=== PATIENT | female | born 1995 | race American Indian/Alaskan Native ===

== ENCOUNTER 2018-03-16 12:54 | Emergency (ER) | payer MEDICAID ==
[2018-03-16 14:18] LABS: Bilirubin,Urine NEG (Negative); Blood,Urine NEG (Negative); Color,Urine Yellow (Yellow); Mucus,Urine 3+ /HPF; Protein,Urine <15 mg/dL mg/dL (Negative); Urobilinogen,Urine < 2.0 mg/dL (<2.0)
[2018-03-16 14:24] LABS: Bacteria,Urine 4+ /HPF (Negative)
[2018-03-16 14:26] LABS: HCG Qualitative,Urine Positive (Negative)
--- NOTE | 2018-03-16 14:32 | Emergency Department Report ---
ED Female HPI - General Chief complaint: Urogenital-Female Stated complaint: TEST Time Seen by Provider: 03/16/18 13:50 Source: patient Mode of arrival: Ambulatory Limitations: No Limitations - History of Present Illness Initial comments: This is a 22-year-old female here reports that she wants to find out if she is and she is having a toothache. Toothache has been for over a month to her left lower back tooth. She states that she doesn't have a dentist. And she doesn't want a dentist but doesn't take each care. she reports that she thinks she is but she has not gone to [facility]. Patient that she did not take a home test because she doesn't use that she wants to find out from here if she is or not. She denies any abdominal, back pain, vaginal bleeding or discharge. Denies any urinary burning, frequency or urgency. Denies any swelling to her legs, chest pain or shortness of breath. Toothache is 8 out of 10 worse with talking and showing. No alleviating factors. She denies taking any medication for toothache. She says she missed her period this month. Triage note reflects the patient was having pelvic pain and lower back pain but patient denies this. She says she is here for test and to get medication for tooth pain and it's been going on for 1 month. Denies any fever or chills, sore throat, cough, Jerlene, nasal congestion or runny nose. MD Complaint: dysuria, other (here to check to see if she is and reports toothache) Onset/Timin -: month(s) Radiation: non-radiating Severity: severe Severity scale (0 -10): 8 Quality: aching (TOOTH) Improves with: none Worsens with: none Are you Now?: Yes Associated Symptoms: dysuria. denies: vaginal discharge, vaginal bleeding, abdominal pain, nausea/vomiting, fever/chills, headaches, loss of appetite, hematuria, rash, seizure, shortness of breath, syncope, weakness - Related Data Sexually active: Yes Previous Rx's Medication Instructions Recorded Last Taken Type Acetaminophen [Non-Aspirin Extra 500 mg PO Q8H PRN #15 tablet 03/16/18 Unknown Rx Strength] Cephalexin [Keflex] 500 mg PO Q8H 7 Days #21 capsule 03/16/18 Unknown Rx Vit Calc,Iron,Folic 1 each PO QAM 30 Days #30 tablet 03/16/18 Unknown Rx [ Vitamins] Allergies Allergy/AdvReac Type Severity Reaction Status Date / Time No Known Allergies Allergy Unverified 03/16/18 13:05 ED Review of Systems ROS: Stated complaint: TEST Other details as noted in HPI Constitutional: denies: chills, fever Eyes: denies: eye pain, eye discharge, vision change ENT: dental pain. denies: ear pain, throat pain Respiratory: denies: cough, shortness of breath, SOB with exertion, SOB at rest , stridor, wheezing Cardiovascular: denies: chest pain, palpitations, dyspnea on exertion, edema, syncope Gastrointestinal: denies: abdominal pain, nausea, vomiting, diarrhea, constipation, hematemesis, melena, hematochezia Genitourinary: dysuria, abnormal menses. denies: urgency, frequency, hematuria , discharge, dyspareunia Musculoskeletal: denies: back pain, joint swelling, arthralgia, myalgia Skin: denies: rash, lesions Neurological: denies: headache, weakness ED Past Medical Hx - Past Medical History Previous Medical History?: Yes Hx Asthma: Yes - Surgical History Past Surgical History?: Yes Additional Surgical History: 2017 - Family History Family history: hypertension - Social History Smoking Status: Current Every Day Smoker Substance Use Type: Alcohol, Marijuana - Medications Home Medications: Home Medications Medication Instructions Recorded Confirmed Last Taken Type Acetaminophen [Non-Aspirin Extra 500 mg PO Q8H PRN #15 tablet 03/16/18 Unknown Rx Strength] Cephalexin [Keflex] 500 mg PO Q8H 7 Days #21 capsule 03/16/18 Unknown Rx Vit Calc,Iron,Folic 1 each PO QAM 30 Days #30 tablet 03/16/18 Unknown Rx [ Vitamins] ED Physical Exam - General Limitations: No Limitations General appearance: alert, in no apparent distress - Head Head exam: Present: atraumatic, normocephalic, normal inspection - Eye Eye exam: Present: normal appearance, PERRL, EOMI Pupils: Present: normal accommodation - ENT ENT exam: Present: normal orophraynx, mucous membranes moist, TM's normal bilaterally, normal external ear exam - Expanded ENT Exam Expanded Ear exam: Present: normal external inspection Mouth exam: Present: normal external inspection Teeth exam: Present: dental caries. Absent: fractured tooth #, dental tenderness #, gingival enlargement 1 - Other (dental caries to17,18,19 and 20) Throat exam: Positive: normal inspection - Neck Neck exam: Present: normal inspection, full ROM. Absent: tenderness, lymphadenopathy - Respiratory Respiratory exam: Present: normal lung sounds bilaterally. Absent: respiratory distress, chest wall tenderness - Cardiovascular Cardiovascular Exam: Present: regular rate, normal rhythm, normal heart sounds. Absent: systolic murmur, diastolic murmur - GI/Abdominal GI/Abdominal exam: Present: soft, normal bowel sounds. Absent: distended, tenderness, guarding, rebound, rigid, organomegaly, mass, bruit, pulsatile mass , hernia - Extremities Exam Extremities exam: Present: normal inspection, full ROM, normal capillary refill , other (no clubbing, cyanosis or edema. +2 pulses to all extremities and no neurovascular compromise.). Absent: tenderness, pedal edema, joint swelling, calf tenderness - Back Exam Back exam: Present: normal inspection, full ROM, other (ambulates without any difficulties). Absent: tenderness, CVA tenderness (R), CVA tenderness (L), muscle spasm, paraspinal tenderness, vertebral tenderness, rash noted - Neurological Exam Neurological exam: Present: alert, oriented X3, normal gait - Psychiatric Psychiatric exam: Present: normal affect, normal mood - Skin Skin exam: Present: warm, dry, intact, normal color. Absent: rash ED Course Vital Signs 03/16/18 03/16/18 13:06 15:32 Temperature 98.7 F 98.6 F Pulse Rate 78 66 Respiratory 16 16 Rate Blood Pressure 121/62 Blood Pressure 112/58 [Left] O2 Sat by Pulse 100 97 Oximetry - Reevaluation(s) Reevaluation #1: 03/17/18 13:03 Stable throughout ED course ED Medical Decision Making - Lab Data Lab Results 03/16/18 Range/Units 13:42 Urine Color Yellow (Yellow) Urine Turbidity Hazy (Clear) Urine pH 6.0 (5.0-7.0) Ur Specific [place] 1.017 (1.003-1.030) Urine Protein <15 mg/dl (Negative) mg/dL Urine Glucose (UA) Neg (Negative) mg/dL Urine Ketones Neg (Negative) mg/dL Urine Blood Neg (Negative) Urine Nitrite Neg (Negative) Urine Bilirubin Neg (Negative) Urine Urobilinogen < 2.0 (<2.0) mg/dL Ur Leukocyte Esterase Tr (Negative) Urine WBC (Auto) 11.0 H (0.0-6.0) /HPF Urine RBC (Auto) 3.0 (0.0-6.0) /HPF U Epithel Cells (Auto) 5.0 (0-13.0) /HPF Urine Bacteria (Auto) 4+ (Negative) /HPF Urine Mucus 3+ /HPF Urine HCG, Qual Positive A (Negative) Urine culture sent - Medical Decision Making This is a 22-year-old patient who is here presenting to the emergency room complaining of lower back tooth pain and she does not have a dentist. She is also saying that she thinks she is but she has not gone to [facility]. She is also complaining of toothache. Toothache is 8 out of 10 worse with talking and showing. No alleviating factors. She denies taking any medication for toothache. She says she missed her period this month. Triage note reflects the patient was having pelvic pain and lower back pain but patient denies this. She says she is here for test and to get medication for tooth pain and it's been going on for 1 month. Denies any fever or chills, sore throat, cough, nasal congestion or runny nose. I saw and examined patient. She has caries to her left lower tooth #17-20. No dental tenderness and no gingivitis. Oral exam with moist mucosa, no pharyngeal erythema or exudate, no MEDICAL RECEPTIONIST ASSISTANT, tongue is normal. No signs of abscess or cellulitis. Oral airways patent. Abdominal exam is nontender to palpate in all quadrants without any rigidity, or acute abdomen. Back exam to include heart, lungs and extremities are normal. Patient had urinalysis which showed that she has acute cystitis and urine cultures sent. test is positive. Discussed with patient that she is a positive test and also urinary tract infection and will need to be treated with an antibiotic and she also needs to follow up with [facility] for care and she voiced understanding. - test. Patient started on vitamin and encouraged to follow up with Dr. Daigle for care is no need for ultrasound or Pelvic exam because she is not having any abdominal pain vaginal bleeding or vaginal discharge. Acute cystitis-patient placed on Macrobid and she was encouraged to increase her water intake. She voiced understanding Toothache-prescription for his Tylenol extra strength, referral to dental clinic. Information given an oral care. Patient referred to [facility] dental clinic Dr. Daigle [facility] on-call Referral to [facility] and primary care. Patient medicated on and care, medication, morning sickness, signs of ectopic and she voiced understanding. I discussed with her if she developed vaginal bleeding, abdominal pain, nausea vomiting, fever or chills, vaginal discharge she returns to emergency room otherwise follow-up with [facility] in 3 days for care. Patient voiced understanding and discharged home with prescription for Macrobid, Tylenol Extra Strength to help with toothache and vitamin. Critical care attestation.: If time is entered above; I have spent that time in minutes in the direct care of this critically ill patient, excluding procedure time. ED Disposition Clinical Impression: Toothache, Caries Acute cystitis Qualifiers: Hematuria presence: without hematuria Qualified Code(s): N30.00 - Acute cystitis without hematuria Qualifiers: Weeks of gestation: unspecified Qualified Code(s): Z34.90 - Encounter for supervision of normal , unspecified, unspecified trimester Disposition: - TO HOME OR SELFCARE Is pt being admited?: No Does the pt Need Aspirin: No Condition: Stable Instructions: Vitamins (By mouth), (ED), Urinary Tract Infection in Women (ED), Dysuria (ED), Toothache (ED) Additional Instructions: Please follow-up with Dr. Daigle [facility] for care. Take Tylenol 500 mg every 8 hours as needed for toothache Take vitamin as prescribed Take Keflex for urinary tract infection Follow up with [facility] for any toothache. If you develop, vaginal bleeding, abdominal pain, back pain, fever and/or chills , nausea and her vomiting please return to the emergency room [place] Urine test is positive. Prescriptions: Acetaminophen [Non-Aspirin Extra Strength] 500 mg PO Q8H PRN #15 tablet PRN Reason: take this medication for tooth Cephalexin [Keflex] 500 mg PO Q8H 7 Days #21 capsule Vit Calc,Iron,Folic [ Vitamins] 1 each PO QAM 30 Days #30 tablet Referrals: PRIMARY CAREMD [Primary Care Provider] - 03/19/18 [facility] [Outside] - 03/19/18 KAREEM BECERRIL MD [Staff Physician] - 03/19/18
[2018-03-16 15:34] VITALS: BP 112/58
== END 2018-03-16 15:32 | disposition home or self-care (01) ==
LOC: ED 12:54
DX: K02.9 Dental caries, unspecified (principal); Z34.90 Encounter for supervision of normal pregnancy, unspecified, unspecified trimester; N30.00 Acute cystitis without hematuria; J45.909 Unspecified asthma, uncomplicated; F17.200 Nicotine dependence, unspecified, uncomplicated; F12.10 Cannabis abuse, uncomplicated
CPT/HCPCS: 81001; 81025; 99283